=== PATIENT | female | born 1980 | race Caucasian/White ===

== ENCOUNTER 2020-04-10 12:00 | Emergency (ER) | payer MEDICAID ==
[~2020-04-10] VITALS: Ht 157.5 cm; Wt 68.0 kg
[2020-04-10 12:00] VITALS: BP_SYST 125
--- NOTE | 2020-04-10 12:00 | NUR ---
Patient to ER chair for evaluation. Side rails up. Report given to BAUTISTA Cornelius.
--- NOTE | 2020-04-10 12:15 | NUR ---
ALERT, CALM, RESP UNLABORED, SKIN WARM AND DRY. COMMUNICATES CLEARLY NAD. HERE FOR MED CLEARANCE
--- NOTE | 2020-04-10 12:50 | NUR ---
DR HOWARD AT BEDSIDE TO ASSESS
[2020-04-10 13:18] VITALS: BP_SYST 125
--- NOTE | 2020-04-10 13:21 | NUR ---
Patient given written and verbal discharge instructions and verbalizes understanding. ER MD discussed with patient the results and treatment provided. Patient in stable condition. ID arm band removed. Patient educated on pain management and to follow up with PMD. Pain Scale []. Opportunity for questions provided and answered. Medication side effect fact sheet provided.
== END 2020-04-10 13:21 ==
LOC: SED 12:00
DX: R51 Headache (principal)
CPT/HCPCS: 99283